=== PATIENT | female | born 1995 | race Two or more races ===

== ENCOUNTER 2025-01-31 11:00 | Inpatient (IN) | payer MEDICAID, OTHER ==
[~2025-01-31] VITALS: Ht 165.1 cm; Wt 86.3 kg
--- NOTE | 2025-01-31 11:25 | ED.PDOC ---
History of Present Illness HPI Comments 39 year old female with a History of Gastritis presents to the ED for the c/c of Epigastric ABD pain. Pt states that her pain started yesterday around 10pm after she ate a couple slices of "pizza". Pt states that her pain was about an 8/10 but has dulled down to a 5/10 as time progresses. Pt also notes of occasional Alcohol use during social gatherings. No other associated factors or symptoms at this point in time. Time Seen by MD: 11:22 Reviewed Notes: Nurses Notes, Medications, Allergies Allergies: Coded Allergies: NO KNOWN ALLERGIES (Unverified , 01/31/25) Information Source: Patient, Relative (Sibling) Mode of Arrival: Ambulatory Severity: Moderate Timing: Hours Duration: Since onset, Hours Prehospital treatment: None Past Medical History Past Medical History (Other): Gastritis Surgical History: Denies all surgeries INSOLE FILLER History: No Pertinent INSOLE FILLER History Family History Family History: No family hx of DM Social History Smoker: Non-Smoker Alcohol: Occasionally Drugs: Denies Drug Use Lives In: Home Constitutional: denies: chills, diaphoresis, fatigue, fever, malaise, sweats, weakness, others EENTM: denies: blurred vision, double vision, ear bleeding, ear discharge, ear drainage, ear pain, ear ringing, eye pain, eye redness, hearing loss, mouth pain, mouth swelling, nasal discharge, nose bleeding, nose congestion, nose pain, photophobia, tearing, throat pain, throat swelling, voice changes, others Respiratory: denies: cough, hemoptysis, orthopnea, SOB at rest, shortness of breath, SOB with excertion, stridor, wheezing, others Cardiovascular: denies: chest pain, dizzy spells, diaphoresis, Dyspnea on exertion, edema, irregular heart beat, left arm pain, lightheadedness, palpitations, PND, syncope, others Gastrointestinal: reports: abdominal pain; denies: abdomen distended, blood streaked bowels, constipated, diarrhea, dysphagia, difficulty swallowing, hematemesis, melena, nausea, poor appetite, poor fluid intake, rectal bleeding, rectal pain, vomiting, others Genitourinary: denies: abnormal vagina bleeding, burning, dyspareunia, dysuria, flank pain, frequency, hematuria, incontinence, pain, , vagina discharge, urgency, others Neurological: denies: dizziness, fainting, headache, left sided numbness, left sided weakness, numbness, paresthesia, pre-existing deficit, right sided numbness, right sided weakness, seizure, speech problems, tingling, tremors, we akness, others Musculoskeletal: denies: back pain, gout, joint pain, joint swelling, muscle pain, muscle stiffness, neck pain, others Integumetry: denies: bruises, change in color, change in hair/nails, dryness, laceration, lesions, lumps, rash, wounds, others Allergic/Immunocompromised: denies: Difficulty Healing, Frequent Infections, Hives, Itching, others Hematologic/Lymphatic: denies: anemia, blood clots, easy bleeding, easy bruising, swollen glands, others Endocrine: denies: excessive hunger, excessive sweating, excessive thirst, excessive urination, flushing, intolerance to cold, intolerance to heat, unexplained weight gain, unexplained weight loss, others Psychiatric: denies: anxiety, bipolar disorder, depression, hopeless, panic disorder, schizophrenia, sleepless, suicidal, others All Other Systems: Reviewed and Negative Physical Exam General Appearance: Moderate Distress, Obese HEENT: Normal ENT Inspection, Pharynx Normal, TMs Normal Neck: Full Range of Motion, Non-Tender, Normal, Normal Inspection Respiratory: Chest Non-Tender, Lungs Clear, No Accessory Muscle Use, No Respiratory Distress, Normal Breath Sounds Cardiovascular: No Edema, No JVD, No Murmur, No Gallop, Normal Peripheral Pulses, Regular Rate/Rhythm Breast Exam: Deferred Gastrointestinal: Epigastric, No Organomegaly, No Pulsatile Mass, Normal Bowel Sounds, Soft, Tenderness Genitalia: Deferred Pelvic: Deferred Rectal: Deferred Extremities: No calf tenderness, Normal capillary refill, Normal inspection, Normal range of motion, Non-tender, No pedal edema Musculoskeletal : Apperance: Normal Neurologic: Alert, skiver welt end II-XII nml as Tested, No Motor Deficits, Normal Affect, Normal Mood, No Sensory Deficits Cerebellar Function: Normal Reflexes: Normal Skin: Dry, Normal Color, Warm Lymphatic: No Adenopathy Was a procedure done? Was a procedure done?: No Differential Dx Considerations may include: Cholelithiasis, cholecystitis X-Ray, Labs, Meds, VS Vital Signs Date Time Temp Pulse Resp B/P (MAP) Pulse Ox O2 Delivery O2 Flow Rate FiO2 6/23/25 13:01 81 18 118/76 (90) 97 01/31/25 13:01 81 18 98 Room Air 01/31/25 12:14 Room Air* 0 21 01/31/25 11:26 98.0 93 16 116/67 (83) 98 98.0 Lab Test 01/31/25 11:59 01/31/25 11:53 Range/Units White Blood Count 10.1 4.4-10.8 10^3/uL Red Blood Count 4.59 4.0-5.20 10^6/uL Hemoglobin 12.8 12.2-16.2 g/dL Hematocrit 37.6 36.0-46.0 % Mean Corpuscular Volume 81.9 80.0-100.0 fL Mean Corpuscular Hemoglobin 27.9 L 28.0-32.0 pg Mean Corpuscular Hemoglobin Concent 34.1 32.0-36.0 g/dL Red Cell Distribution Width 14.2 11.8-14.3 % Platelet Count 289 140-450 10^3/uL Mean Platelet Volume 9.3 6.9-10.8 fL Neutrophils (%) (Auto) 90.4 H 37.0-80.0 % Lymphocytes (%) (Auto) 6.4 L 10.0-50.0 % Monocytes (%) (Auto) 2.5 0.0-12.0 % Eosinophils (%) (Auto) 0.1 0.0-7.0 % Basophils (%) (Auto) 0.6 0.0-2.0 % Neutrophils # (Auto) 9.1 H 1.6-8.6 10 ^3/uL Lymphocytes # (Auto) 0.6 0.4-5.4 10 ^3/uL Monocytes # (Auto) 0.3 0-1.3 10 ^3/uL Eosinophils # (Auto) 0 0-0.8 10 ^3/uL Basophils # (Auto) 0.1 0-0.2 10 ^3/uL Nucleated Red Blood Cells 0.0 % Sodium Level 142 136-145 mmol/L Potassium Level 4.0 3.5-5.1 mmol/L Chloride Level 106 98-107 mmol/L Carbon Dioxide Level 24 20-31 mmol/L Anion Gap 12 5-15 Blood Urea Nitrogen 8 L 9-23 mg/dL Creatinine 0.71 0.550-1.02 mg/dL Glomerular Filtration Rate Calc 119 >90 mL/min BUN/Creatinine Ratio 11.3 10.0-20.0 Serum Glucose 112 H 74-106 mg/dL Calcium Level 10.3 8.7-10.4 mg/dL Total Bilirubin 0.8 0.2-1.0 mg/dL Aspartate Amino Transferase (AST) 17 <34 U/L Alanine Aminotransferase (ALT) 11 7-40 U/L Alkaline Phosphatase 62 46-116 U/L Total Protein 8.2 5.7-8.2 g/dL Albumin 5.0 H 3.2-4.8 g/dL Lipase 27 12-53 U/L Urine Color Light-yellow Yellow Urine Clarity Clear Clear Urine pH 8.0 5.0-9.0 Urine Specific [place] 1.026 1.001-1.035 Urine Protein Trace H Negative Urine Ketones Negative Negative Urine Blood Trace H Negative /uL Urine Nitrite Negative Negative Urine Bilirubin Negative Negative Urine Urobilinogen Normal Negative mg/dL Urine Leukocyte Esterase Trace Negative /uL Urine RBC 21 0 - 4 /hpf Urine Microscopic WBC 3 0-5 /HPF Urine Squamous Epithelial Cells Few <5 /hpf Urine Bacteria None seen None Seen /hpf Urine Mucus Few None Seen Urine Glucose Normal Normal mg/dL IMPRESSION: Cholelithiasis without sonographic evidence of acute cholecystitis. Hepatic steatosis. IV Hep-Lock was established The patient is being given morphine 4 mg IV push for the pain The patient was given Zofran 4 mg IV push The patient was given Protonix 40 mg IV push The urine test is negative for infection The patient's CBC is within normal limits The chemistry panel is within normal limits The lipase is within normal limits Images Reviewed?: Images reviewed and evaluated by me Time of 1ST Reevaluation: 11:52 Reevaluation 1ST: Unchanged Patient Education/Counseling: Diagnosis, Treatment, Prognosis Family Education/Counseling: Diagnosis, Treatment, Prognosis SEPSIS Sepsis Screen Physician Orders Gallbladder (01/31/25 11:22) Vital Signs Date Time Temp Pulse Resp B/P (MAP) Pulse Ox O2 Delivery O2 Flow Rate FiO2 01/31/25 13:01 81 18 118/76 (90) 97 01/31/25 13:01 81 18 98 Room Air 01/31/25 12:14 Room Air* 0 21 01/31/25 11:26 98.0 93 16 116/67 (83) 98 98.0 Laboratory Tests Test 01/31/25 11:59 White Blood Count 10.1 10^3/uL (4.4-10.8) Departure 1 Departure Time of Disposition: 13:10 Impression: Primary Impression: Cholelithiasis Qualified Codes: K80.20 - Calculus of gallbladder without cholecystitis without obstruction Additional Impression: Intractable abdominal pain Disposition: ADMITTED INPATIENT Admit to: Med Surg Condition: Fair Critical Care Note Critical Care Time?: No Stability Stability form required: Yes Unstable for transfer: ED Physician Assesment (Clinical assesment) Heart Score Heart Score: Heart Score Response (Comments) Value History N/A 0 EKG N/A 0 Age N/A 0 Risk Factors N/A 0 Troponin N/A 0 Total 0 I personally scribed for RASHI PAYNE MD ([email or web address]) on 01/31/25 at 11:25. Electronically submitted by Pérez Fairchild ([email or web address]). I personally scribed for RASHI PAYNE MD ([email or web address]) on 01/31/25 at 12:45. Electronically submitted by Pérez Fairchild ([email or web address]). RASHI PAYNE MD Jan 31, 2025 11:25
[2025-01-31 11:53] LABS: Urine Bacteria None Seen /hpf (None Seen)
[2025-01-31 12:17] LABS: Basophils # (auto) 0.1 10 ^3/uL (0-0.2); Basophils % (auto) 0.6 % (0.0-2.0); Eosinophils # (auto) 0 10 ^3/uL (0-0.8); Eosinophils % (auto) 0.1 % (0.0-7.0); Hematocrit 37.6 % (36.0-46.0); Hemoglobin 12.8 g/dL (12.2-16.2); Lymphocytes # (auto) 0.6 10 ^3/uL (0.4-5.4); Lymphocytes % (auto) 6.4 % (10.0-50.0); Mean Corpuscular Hemoglobin 27.9 pg (28.0-32.0); Mean Corpuscular Hgb Conc. 34.1 g/dL (32.0-36.0); Mean Corpuscular Volume 81.9 fL (80.0-100.0); Monocytes # (auto) 0.3 10 ^3/uL (0-1.3); Monocytes % (auto) 2.5 % (0.0-12.0); Neutrophils # (auto) 9.1 10 ^3/uL (1.6-8.6); Neutrophils % (auto) 90.4 % (37.0-80.0); Platelet Count (auto) 289 10^3/uL (140-450); Red Blood Cells 4.59 10^6/uL (4.0-5.20); Red Cell Distribution Width 14.2 % (11.8-14.3); White Blood Cell 10.1 10^3/uL (4.4-10.8)
[2025-01-31 12:22] LABS: Urine Blood TRACE /uL (Negative); Urine Clarity Clear (Clear); Urine Color Light-Yellow (Yellow); Urine Mucus FEW (None Seen); Urine Protein, UAD TRACE (Negative); Urine Specific Gravity 1.026 (1.001-1.035); Urine Squamous Epithelial Cell FEW /hpf (<5); Urine Urobilinogen Normal (Negative); Urine WBC 3 /HPF (0-5)
[2025-01-31 12:23] LABS: Alanine Aminotransferase 11 U/L (7-40); Alkaline Phosphatase 62 U/L (46-116); Anion Gap 12 (5-15); Aspartate Aminotransferase 17 U/L (<34); BUN/Creatinine Ratio 11.3 (10.0-20.0); Bilirubin, Total 0.8 mg/dL (0.2-1.0); Calcium 10.3 mg/dL (8.7-10.4); Carbon Dioxide 24 mmol/L (20-31); Chloride 106 mmol/L (98-107); Sodium 142 mmol/L (136-145); Total Protein 8.2 g/dL (5.7-8.2)
[2025-01-31 12:24] LABS: Blood Urea Nitrogen 8 mg/dL (9-23); Glucose 112 mg/dL (74-106)
--- NOTE | 2025-01-31 12:41 | DVH ---
INDICATION: pain TECHNIQUE: Multiple real-time sonographic images were obtained of the right upper quadrant. COMPARISON: None FINDINGS: The liver demonstrates increased echotexture without focal mass lesions. The liver measures 14 cm. There is no intrahepatic or extrahepatic ductal dilatation. The common duct measures 4 mm. Multiple gallstones. The gallbladder wall measures 3 mm and is within normal limits. The right kidney measures 10.0 cm. The right kidney is normal in contour, size, and shape. The echog enicity is normal. There is no hydronephrosis. The pancreas is not well visualized due to overlying bowel gas. IMPRESSION: Cholelithiasis without sonographic evidence of acute cholecystitis. Hepatic steatosis.
[2025-01-31 12:59] LABS: Lipase 27 U/L (12-53)
[2025-01-31] MEDS: PANTOPRAZOLE 40 MG/10 ML VIAL INJ IV ONE (13:47)
[2025-01-31] MEDS: ONDANSETRON HCL 4 MG/2 ML VIAL IV ONE (13:47)
[2025-01-31] MEDS: MORPHINE SULFATE 4 MG/ML SYR/VIAL IV ONE (13:48)
[2025-01-31] MEDS ORDERED: ONDANSETRON HCL 4 MG/2 ML VIAL IV PRN (15:30)
[2025-01-31] MEDS ORDERED: DOCUSATE SOD 100 MG CAP PO PRN (15:30)
[2025-01-31] MEDS ORDERED: HYDROcodone-ACET 5/325MG TAB PO PRN (15:30)
[2025-01-31] MEDS ORDERED: MORPHINE SULFATE INJ 2 MG/ml SYRG IV PRN ×2 (15:30→16:15)
--- NOTE | 2025-01-31 16:14 | DVHHP2 ---
History of Present Illness Reason for Visit: Intractable abdominal pain History of Present Illness The patient is a 39-year-old female with past medical history of gastritis who presented to [facility] ED with complaint of epigastric abdominal pain. Patient reports that symptoms started after she ate a couple slice of pizza, rating pain 8/10 numeric scale, getting worse that prompted this visit. Patient was seen and evaluated in the ED, laboratory data shows WBC 10.1, platelets 289, sodium 142, potassium 4.0, BUN 8, creatinine 0.71, glucose 112, calcium 10.3, lipase 27, blood pressure 117/80, heart rate 82, temperature 98.0 F, O2 saturation 97% on room air. Gallbladder ultrasound revealing cholelithiasis without sonographic evidence of acute cholecystitis, hepatic steatosis. Patient was given morphine sulfate 4 mg IV x1, please see medication orders section in the computer. On my assessment, patient denied chest pain, no headache, no dizziness, no shortness of breath, no abdominal pain at this moment, no diarrhea, no nausea, no vomiting, no fever, no chills. Patient was admitted for further evaluation and medical management. Past Medical History Gastritis Past Surgical History Denies all surgeries Family History Reviewed, noncontributory to the management of this case. Past Social History The patient lives at home, denies smoking, alcohol or illicit drugs abuse. Review of Systems Constitutional: No: Fever, Chills, Sweats, Weakness, Malaise, Other Eyes: No: Pain, Vision change, Conjunctivae inflammation, Eyelid inflammation, Other, Redness ENT: No: Ear pain, Ear discharge, Nose pain, Nose discharge, Nose congestion, Mouth pain, Mouth swelling, Throat pain, Throat swelling, Other Respiratory: No: Cough, Dry, Shortness of breath, SOB with excertion, Wheezing, Hemoptysis, Pleuritic Pain, Sputum, Wheezing, Other Cardiovascular: No: Chest Pain, Palpitations, Orthopnea, Paroxysmal Noc. Dyspnea, Edema, Lt Headedness, Other Gastrointestinal: Abdominal Pain; No: Nausea, Vomiting, Diarrhea, Constipation, Melena, Hematochezia, Other Genitourinary: No Dysuria, No Frequency, No Incontinence, No Hematuria, No Retention, No Other Musculoskeletal: No: other, neck pain, shoulder pain, arm pain, back pain, hand pain, leg pain, foot pain Skin: No: Rash, Lesions, Jaundice, Bruising, Other Neurological: No: Weakness, Numbness, Incoordination, Change in speech, Confusion, Seizures, Other Allergies: Coded Allergies: NO KNOWN ALLERGIES (Unverified , 01/31/25) Medications Current Medications Medications Dose Ordered Sig/Nancy Route Start Time Stop Time Status Last Admin Dose Admin Pantoprazole Sodium 40 mg DAILY IV 02/01/25 10:00 Sodium Chloride 10 ml Q8HR IV 01/31/25 22:00 Acetaminophen/ Hydrocodone Bitart 1 tab Q4HP PRN PO 01/31/25 15:30 Ondansetron HCl 4 mg Q4HP PRN IV 01/31/25 15:30 Docusate Sodium 100 mg BIDPRN PRN PO 01/31/25 15:30 Acetaminophen 650 mg Q6HP PRN PO 01/31/25 15:30 Morphine Sulfate 2 mg Q4HPRN PRN IV 01/31/25 15:30 Exam Vital Signs Vital Signs Date Time Temp Pulse Resp B/P (MAP) Pulse Ox O2 Delivery O2 Flow Rate FiO2 01/31/25 13:48 82 18 117/80 01/31/25 13:01 97 01/31/25 13:01 Room Air 01/31/25 12:14 0 21 01/31/25 11:26 98.0 98.0 General Appearance: Alert, Oriented X3, Cooperative, No acute distress HEENT: Atraumatic, PERRLA, EOMI, Mucous membr. moist/pink Respiratory: Clear to auscultation, Normal air movement Cardiovascular: Regular rate, Normal S1, Normal S2, No murmurs Abdominal: Normal bowel sounds, Soft, No hepatospenomegaly, No masses, Other (Reports tenderness) Extremities: No clubbing, No cyanosis, No edema, Normal pulses, No tenderness/swelling Skin: No rashes, No breakdown, No significant lesion Neuro: Normal gait, Normal speech, Strength at 5/5 X4 ext, Normal tone, Sensation intact, Cranial nerves 3-12 NL, Reflexes 2+ Psych/Mental Status: Mental status NL, Mood NL Labs/Xrays Labs Test 01/31/25 11:59 01/31/25 11:53 Range/Units White Blood Count 10.1 4.4-10.8 10^3/uL Red Blood Count 4.59 4.0-5.20 10^6/uL Hemoglobin 12.8 12.2-16.2 g/dL Hematocrit 37.6 36.0-46.0 % Mean Corpuscular Volume 81.9 80.0-100.0 fL Mean Corpuscular Hemoglobin 27.9 L 28.0-32.0 pg Mean Corpuscular Hemoglobin Concent 34.1 32.0-36.0 g/dL Red Cell Distribution Width 14.2 11.8-14.3 % Platelet Count 289 140-450 10^3/uL Mean Platelet Volume 9.3 6.9-10.8 fL Neutrophils (%) (Auto) 90.4 H 37.0-80.0 % Lymphocytes (%) (Auto) 6.4 L 10.0-50.0 % Monocytes (%) (Auto) 2.5 0.0-12.0 % Eosinophils (%) (Auto) 0.1 0.0-7.0 % Basophils (%) (Auto) 0.6 0.0-2.0 % Neutrophils # (Auto) 9.1 H 1.6-8.6 10 ^3/uL Lymphocytes # (Auto) 0.6 0.4-5.4 10 ^3/uL Monocytes # (Auto) 0.3 0-1.3 10 ^3/uL Eosinophils # (Auto) 0 0-0.8 10 ^3/uL Basophils # (Auto) 0.1 0-0.2 10 ^3/uL Nucleated Red Blood Cells 0.0 % Sodium Level 142 136-145 mmol/L Potassium Level 4.0 3.5-5.1 mmol/L Chloride Level 106 98-107 mmol/L Carbon Dioxide Level 24 20-31 mmol/L Anion Gap 12 5-15 Blood Urea Nitrogen 8 L 9-23 mg/dL Creatinine 0.71 0.550-1.02 mg/dL Glomerular Filtration Rate Calc 119 >90 mL/min BUN/Creatinine Ratio 11.3 10.0-20.0 Serum Glucose 112 H 74-106 mg/dL Calcium Level 10.3 8.7-10.4 mg/dL Total Bilirubin 0.8 0.2-1.0 mg/dL Aspartate Amino Transferase (AST) 17 <34 U/L Alanine Aminotransferase (ALT) 11 7-40 U/L Alkaline Phosphatase 62 46-116 U/L Total Protein 8.2 5.7-8.2 g/dL Albumin 5.0 H 3.2-4.8 g/dL Lipase 27 12-53 U/L Urine Color Light-yellow Yellow Urine Clarity Clear Clear Urine pH 8.0 5.0-9.0 Urine Specific [place] 1.026 1.001-1.035 Urine Protein Trace H Negative Urine Ketones Negative Negative Urine Blood Trace H Negative /uL Urine Nitrite Negative Negative Urine Bilirubin Negative Negative Urine Urobilinogen Normal Negative mg/dL Urine Leukocyte Esterase Trace Negative /uL Urine RBC 21 0 - 4 /hpf Urine Microscopic WBC 3 0-5 /HPF Urine Squamous Epithelial Cells Few <5 /hpf Urine Bacteria None seen None Seen /hpf Urine Mucus Few None Seen Urine Glucose Normal Normal mg/dL PATIENT: CHONG AWAD ACCT: [id number] UNIT: [id number] : 1995 LOC: ER ROOM / BED: / AGE / SEX: 29 / F ADM STATUS: REG ER SERVICE 1122 ORDERING PHYSICIAN: RASHI PAYNE MD PROCEDURE(s): GBUS - GALLBLADDER REASON: pain ORDER NUMBER(s): [id number], ACCESSION NUMBER(s): [id number] INDICATION: pain TECHNIQUE: Multiple real-time sonographic images were obtained of the right upper quadrant. COMPARISON: None FINDINGS: The liver demonstrates increased echotexture without focal mass lesions. The liver measures 14 cm. There is no intrahepatic or extrahepatic ductal dilatation. The common duct measures 4 mm. Multiple gallstones. The gallbladder wall measures 3 mm and is within normal limits. The right kidney measures 10.0 cm. The right kidney is normal in contour, size, and shape. The echogenicity is normal. There is no hydronephrosis. The pancreas is not well visualized due to overlying bowel gas. IMPRESSION: Cholelithiasis without sonographic evidence of acute cholecystitis. Hepatic steatosis. Assessment/Plan Assessment/Plan Cholelithiasis Intractable abdominal pain Calculus of gallbladder without cholecystitis without obstruction Plan 1. Admit to med surge unit 2. Breathing treatment 3. Pain control management 4. Management of fluids and electrolytes 5. Consultation for hospitalist 6. Diagnostic tests bladder ultrasound 7. DVT prophylaxis on SCDs 8. Repeat labs CBC, CMP in a.m. 9. Continue with current medical management 10. Treatment plan discussed with patient and RN. Patient verbalized understanding. Plan discussed with: Patient, Other (RN) My Orders Orders - CHAPARRITA ZAMORA DNP Procedure Category Date Status Time Pantoprazole PHA 02/01/25 In Process (Protonix) 10:00 Allergies HAYLIE 01/31/25 In Process 15:30 Code Status CODE 01/31/25 Transmitted 15:30 Sodium Chloride Lock PHA 01/31/25 In Process (Saline Lock Ns) 22:00 Oxygen Per Hour RT 01/31/25 Transmitted 15:30 Hydrocodone-Acet PHA 01/31/25 In Process 5/325mg Tab (Elizabeth 15:30 Ondansetron Hcl PHA 01/31/25 In Process (Zofran) 15:30 Docusate Sodium PHA 01/31/25 In Process Capsule (Colace 15:30 Complete Blood Count LAB 02/01/25 Verified 04:00 Comprehensive LAB 02/01/25 Verified Metabolic Panel 04:00 Condition: Serious HAYLIE 01/31/25 In Process 15:30 Acetaminophen Tablet PHA 01/31/25 In Process (Tylenol Tablet) 15:30 Clear Liq Diet DIET 01/31/25 Transmitted Dinner Bedrest With Bathroom HAYLIE 01/31/25 In Process Privileg 15:30 Morphine Sulfate PHA 01/31/25 In Process Injection 15:30 Sequential HAYLIE 01/31/25 In Process Compression Device Problem List: (1) Cholelithiasis (2) Intractable abdominal pain (3) Calculus of gallbladder without cholecystitis without obstruction Date of Service: Jan 31, 2025 Billing Provider: CHAPARRITA ZAMORA DNP Common Visit Codes: 23375-[id number] INP/OBS CARE (MOD) CHAPARRITA ZAMORA DNP Jan 31, 2025 16:14
[2025-01-31] MEDS ORDERED: NITROGLYCERIN 0.4 MG SL TAB SL PRN (16:15)
[2025-01-31 17:21] VITALS: BP 101/64; PULSE 69; RESP 14; TEMP 98.3
[2025-01-31] MEDS: ACETAMINOPHEN 325 MG TAB PO PRN (20:55)
[2025-01-31 21:00] VITALS: BP 99/66; PULSE 71; RESP 16; TEMP 98.8; O2SAT 100
[2025-01-31] MEDS: SODIUM CHLOR 0.9% PF (SALINE LOCK) 10ML VIAL/SYR IV SCH (22:00)
[2025-02-01 04:32] LABS: Basophils # (auto) 0 10 ^3/uL (0-0.2); Basophils % (auto) 0.3 % (0.0-2.0); Eosinophils # (auto) 0 10 ^3/uL (0-0.8); Eosinophils % (auto) 0.6 % (0.0-7.0); Hematocrit 36.1 % (36.0-46.0); Lymphocytes # (auto) 1.8 10 ^3/uL (0.4-5.4); Lymphocytes % (auto) 27.7 % (10.0-50.0); Mean Corpuscular Hemoglobin 27.6 pg (28.0-32.0); Mean Corpuscular Hgb Conc. 33.3 g/dL (32.0-36.0); Mean Corpuscular Volume 82.8 fL (80.0-100.0); Monocytes # (auto) 0.5 10 ^3/uL (0-1.3); Neutrophils # (auto) 4.1 10 ^3/uL (1.6-8.6); Neutrophils % (auto) 63.4 % (37.0-80.0); Nucleated Red Blood Cells % 0.1 %; Platelet Count (auto) 253 10^3/uL (140-450); Red Blood Cells 4.37 10^6/uL (4.0-5.20); Red Cell Distribution Width 14.1 % (11.8-14.3); White Blood Cell 6.5 10^3/uL (4.4-10.8)
[2025-02-01 04:35] VITALS: BP 89/47; PULSE 56; RESP 16; TEMP 98.5; O2SAT 100
[2025-02-01 04:38] LABS: Albumin 4.4 g/dL (3.2-4.8); Alkaline Phosphatase 56 U/L (46-116); Anion Gap 10 (5-15); Aspartate Aminotransferase 12 U/L (<34); BUN/Creatinine Ratio 11.1 (10.0-20.0); Calcium 9.1 mg/dL (8.7-10.4); Carbon Dioxide 27 mmol/L (20-31); Chloride 102 mmol/L (98-107); Glucose 94 mg/dL (74-106); Potassium 3.5 mmol/L (3.5-5.1); Sodium 139 mmol/L (136-145); Total Protein 7.5 g/dL (5.7-8.2)
[2025-02-01 04:45] LABS: Alanine Aminotransferase < 9 U/L (7-40); Bilirubin, Total 1.2 mg/dL (0.2-1.0); Blood Urea Nitrogen 9 mg/dL (9-23)
[2025-02-01 08:32] VITALS: BP 89/61; PULSE 57; RESP 16; TEMP 98; O2SAT 97
[2025-02-01] MEDS: PANTOPRAZOLE 40 MG/10 ML VIAL INJ IV SCH (09:29)
[2025-02-01 12:32] VITALS: BP 100/62; PULSE 74; RESP 17; TEMP 98.3; O2SAT 98
--- NOTE | 2025-02-01 14:55 | DVHPN2 ---
Eyes: No Pain, No Vision change, No Conjunctivae inflammation, No Eyelid inflammation, No Other, No Redness ENT: No Ear pain, No Ear discharge, No Nose pain, No Nose discharge, No Nose congestion, No Mouth pain, No Mouth swelling, No Throat pain, No Throat swelling, No Other Cardiovascular: No Chest Pain, No Palpitations, No Orthopnea, No Paroxysmal Noc. Dyspnea, No Edema, No Lt Headedness, No Other Respiratory: No Cough, No Dry, No Shortness of breath, No SOB with excertion, No Wheezing, No Hemoptysis, No Pleuritic Pain, No Sputum, No Other Gastrointestinal: No Nausea, No Vomiting; Abdominal Pain; No Diarrhea, No Constipation, No Melena, No Hematochezia, No Other Genitourinary: No Dysuria, No Frequency, No Incontinence, No Hematuria, No Retention, No Other Musculoskeletal: No other, No neck pain, No shoulder pain, No arm pain, No back pain, No hand pain, No leg pain, No foot pain Skin: No Rash, No Lesions, No Jaundice, No Bruising, No Other Objective Vitals Vital Signs Date Time Temp Pulse Resp B/P (MAP) Pulse Ox O2 Delivery O2 Flow Rate FiO2 02/01/25 12:32 98.3 74 17 100/62 (75) 98 98.3 01/31/25 13:01 Room Air 01/31/25 12:14 0 21 Intake/Output Intake and Output 02/01/25 07:00 Intake Total 0 ml Balance 0 ml Intake Oral 0 ml Medications Current Medications Medications Dose Ordered Sig/Nancy Route Start Time Stop Time Status Last Admin Dose Admin Pantoprazole Sodium 40 mg DAILY IV 02/01/25 10:00 02/01/25 09:29 40 MG Sodium Chloride 10 ml Q8HR IV 01/31/25 22:00 02/01/25 13:56 10 ML Acetaminophen/ Hydrocodone Bitart 1 tab Q4HP PRN PO 01/31/25 15:30 Ondansetron HCl 4 mg Q4HP PRN IV 01/31/25 15:30 Docusate Sodium 100 mg BIDPRN PRN PO 01/31/25 15:30 Acetaminophen 650 mg Q6HP PRN PO 01/31/25 15:30 01/31/25 20:55 650 MG Morphine Sulfate 2 mg Q4HPRN PRN IV 01/31/25 15:30 Nitroglycerin 0.4 mg Q5MINP PRN SL 01/31/25 16:15 Morphine Sulfate 2 mg Q30M PRN IV 01/31/25 16:15 Laboratory Results Laboratory Tests 02/01/25 03:33 Chemistry Test 02/01/25 03:33 Albumin 4.4 g/dL (3.2-4.8) Calcium Level 9.1 mg/dL (8.7-10.4) Total Protein 7.5 g/dL (5.7-8.2) LFT Test 02/01/25 03:33 Alanine Aminotransferase (ALT) < 9 U/L (7-40) Alkaline Phosphatase 56 U/L (46-116) Aspartate Amino Transferase (AST) 12 U/L (<34) Total Bilirubin 1.2 mg/dL (0.2-1.0) H Urinalysis Test 01/31/25 11:53 Urine Color Light-yellow (Yellow) Urine Clarity Clear (Clear) Urine pH 8.0 (5.0-9.0) Urine Specific [place] 1.026 (1.001-1.035) Urine Protein Trace (Negative) H Urine Ketones Negative (Negative) Urine Blood Trace /uL (Negative) H Urine Nitrite Negative (Negative) Urine Bilirubin Negative (Negative) Urine Urobilinogen Normal mg/dL (Negative) Urine Leukocyte Esterase Trace /uL (Negative) Urine RBC 21 /hpf (0 - 4) Urine Microscopic WBC 3 /HPF (0-5) Urine Squamous Epithelial Cells Few /hpf (<5) Urine Bacteria None seen /hpf (None Seen) Urine Mucus Few (None Seen) Urine Glucose Normal mg/dL (Normal) NATALIYA WOOD DO Feb 01, 2025 14:55
[2025-02-01 16:46] VITALS: BP 99/60; PULSE 72; RESP 16; TEMP 98.1; O2SAT 98
--- NOTE | 2025-02-01 18:37 | DVHINCON2 ---
Consultation - Surgical Date Seen: Feb 01, 2025 Referring Physician Referring Physician er Reason for Consultation abd pain History of Present Illness History of Present Illness The patient is a 39-year-old female with past medical history of gastritis who presented to [facility] ED with complaint of epigastric abdominal pain. Patient reports that symptoms started after she ate a couple slice of pizza, rating pain 8/10 numeric scale, getting worse that prompted this visit. Patient was seen and evaluated in the ED, laboratory data shows WBC 10.1, platelets 289, sodium 142, potassium 4.0, BUN 8, creatinine 0.71, glucose 112, calcium 10.3, lipase 27, blood pressure 117/80, heart rate 82, temperature 98.0 F, O2 saturation 97% on room air. Gallbladder ultrasound revealing cholelithiasis without sonographic evidence of acute cholecystitis, hepatic steatosis. Patient was given morphine sulfate 4 mg IV x1, please see medication orders section in the computer. On my assessment, patient denied chest pain, no headache, no dizziness, no shortness of breath, no abdominal pain at this moment, no diarrhea, no nausea, no vomiting, no fever, no chills. Patient was admitted for further evaluation and medical management. Patient currently feels better no abdominal pain. He is looking to eat. Past Medical/Surgical History Past Medical/Surgical History gastritis Family and Social History Family and Social History Nonsmoker nondrinker Allergies and medications Allergies: Coded Allergies: NO KNOWN ALLERGIES (Unverified , 01/31/25) Home Meds No Active Prescriptions or Reported Meds Review of systems Review of Systems: HEENT:Normal, CVS:Normal, RESPIRATORY:Normal, GI:Normal, :Normal, MSK:Normal, NEURO:Normal Examination Vital signs Vital Signs Date Time Temp Pulse Resp B/P (MAP) Pulse Ox O2 Delivery O2 Flow Rate FiO2 02/01/25 16:46 98.1 72 16 99/60 (73) 98 98.1 01/31/25 13:01 Room Air 01/31/25 12:14 0 21 Medications Current Medications Medications (Trade) Dose Ordered Sig/Nancy Route PRN Reason Start Time Stop Time Status Last Admin Pantoprazole Sodium (Protonix) 40 mg DAILY IV 02/01/25 10:00 02/01/25 09:29 Sodium Chloride (Saline Lock Ns) 10 ml Q8HR IV 01/31/25 22:00 02/01/25 13:56 Laboratory Labs Test 02/01/25 03:33 01/31/25 11:59 01/31/25 11:53 Range/Units White Blood Count 6.5 # 4.4-10.8 10^3/uL Red Blood Count 4.37 4.0-5.20 10^6/uL Hemoglobin 12.0 L 12.2-16.2 g/dL Hematocrit 36.1 36.0-46.0 % Mean Corpuscular Volume 82.8 80.0-100.0 fL Mean Corpuscular Hemoglobin 27.6 L 28.0-32.0 pg Mean Corpuscular Hemoglobin Concent 33.3 32.0-36.0 g/dL Red Cell Distribution Width 14.1 11.8-14.3 % Platelet Count 253 140-450 10^3/uL Mean Platelet Volume 9.2 6.9-10.8 fL Neutrophils (%) (Auto) 63.4 37.0-80.0 % Lymphocytes (%) (Auto) 27.7 10.0-50.0 % Monocytes (%) (Auto) 8.0 0.0-12.0 % Eosinophils (%) (Auto) 0.6 0.0-7.0 % Basophils (%) (Auto) 0.3 0.0-2.0 % Neutrophils # (Auto) 4.1 1.6-8.6 10 ^3/uL Lymphocytes # (Auto) 1.8 0.4-5.4 10 ^3/uL Monocytes # (Auto) 0.5 0-1.3 10 ^3/uL Eosinophils # (Auto) 0 0-0.8 10 ^3/uL Basophils # (Auto) 0 0-0.2 10 ^3/uL Nucleated Red Blood Cells 0.1 % Sodium Level 139 136-145 mmol/L Potassium Level 3.5 3.5-5.1 mmol/L Chloride Level 102 98-107 mmol/L Carbon Dioxide Level 27 20-31 mmol/L Anion Gap 10 5-15 Blood Urea Nitrogen 9 9-23 mg/dL Creatinine 0.81 0.550-1.02 mg/dL Glomerular Filtration Rate Calc 101 >90 mL/min BUN/Creatinine Ratio 11.1 10.0-20.0 Serum Glucose 94 74-106 mg/dL Calcium Level 9.1 8.7-10.4 mg/dL Total Bilirubin 1.2 H 0.2-1.0 mg/dL Aspartate Amino Transferase (AST) 12 <34 U/L Alanine Aminotransferase (ALT) < 9 7-40 U/L Alkaline Phosphatase 56 46-116 U/L Total Protein 7.5 5.7-8.2 g/dL Albumin 4.4 3.2-4.8 g/dL Lipase 27 12-53 U/L Urine Color Light-yellow Yellow Urine Clarity Clear Clear Urine pH 8.0 5.0-9.0 Urine Specific [place] 1.026 1.001-1.035 Urine Protein Trace H Negative Urine Ketones Negative Negative Urine Blood Trace H Negative /uL Urine Nitrite Negative Negative Urine Bilirubin Negative Negative Urine Urobilinogen Normal Negative mg/dL Urine Leukocyte Esterase Trace Negative /uL Urine RBC 21 0 - 4 /hpf Urine Microscopic WBC 3 0-5 /HPF Urine Squamous Epithelial Cells Few <5 /hpf Urine Bacteria None seen None Seen /hpf Urine Mucus Few None Seen Urine Glucose Normal Normal mg/dL Examination: GENERAL:Normal, HEENT:Normal, NECK:Normal, LUNGS:Normal, CVS:Normal, ABDOMEN:Normal, MSK:Normal, SKIN:Normal, NEURO:Normal, :Normal Problem List/Assessment/Plan Problems: (1) Cholelithiasis Assessment and Plan Abdominal pain resolved. Advance diet if tolerates diet without pain discharged in a.m. Plan discussed with Plan discussed with: Patient Visit Coding Surgery Date of Service if different f: Feb 01, 2025 Billing Provider: TIFFANIE GUZMAN Jr., MD Surgery Visit Codes: 02954 - INP CONSULT <80 MIN TIFFANIE GUZMAN Jr., MD Feb 01, 2025 18:37
[2025-02-01 20:00] VITALS: PULSE 77; RESP 16; O2SAT 96
[2025-02-01 21:00] VITALS: BP 103/65; PULSE 72; RESP 16; RESP 69; TEMP 98.3; O2SAT 96
[2025-02-02] VITALS (7 sets, daily range): BP systolic 94–109; BP diastolic 55–74; PULSE 61–82; RESP 16–20; TEMP 97.2–98.6; O2SAT 95–99
== END 2025-02-02 17:50 | disposition home or self-care (01) ==
LOC: ER 11:00 → OVERFLOW 16:12 → EAST 02-01 16:07
PROVIDERS: ADMIT Internal Medicine; ATTEND Internal Medicine
DX: K80.20 Calculus of gallbladder without cholecystitis without obstruction (principal); K76.0 Fatty (change of) liver, not elsewhere classified
CPT/HCPCS: 36415; 76705; 80053; 81001; 83690; 85025; 96374; 96375; G0378; J2405; J2470

== ENCOUNTER 2025-02-23 16:27 | Emergency (ER) | payer MEDICAID ==
[~2025-02-23] VITALS: Ht 165.1 cm; Wt 90.4 kg
[2025-02-23 17:32] LABS: Urine Protein, UAD Negative (Negative)
[2025-02-23 18:04] LABS: Hematocrit 38.9 % (36.0-46.0); Hemoglobin 12.8 g/dL (12.2-16.2); Mean Corpuscular Hemoglobin 27.8 pg (28.0-32.0); Mean Corpuscular Volume 84.5 fL (80.0-100.0); Nucleated Red Blood Cells % 0.0 %
[2025-02-23 18:17] LABS: Alanine Aminotransferase 23 U/L (7-40); Albumin 5.2 g/dL (3.2-4.8); Alkaline Phosphatase 86 U/L (46-116); Anion Gap 12 (5-15); BUN/Creatinine Ratio 9.5 (10.0-20.0); Bilirubin, Total 0.7 mg/dL (0.2-1.0); Blood Urea Nitrogen 8 mg/dL (9-23); Calcium 10.7 mg/dL (8.7-10.4); Carbon Dioxide 22 mmol/L (20-31); Chloride 108 mmol/L (98-107); Glucose 111 mg/dL (74-106); Potassium 3.5 mmol/L (3.5-5.1); Sodium 142 mmol/L (136-145); Total Protein 8.6 g/dL (5.7-8.2)
[2025-02-23 18:24] VITALS: PULSE 104; RESP 18; TEMP 99.4; O2SAT 95
--- NOTE | 2025-02-23 18:41 | DVH ---
CHEST RADIOGRAPH REASON FOR EXAM: chest pain radiating to R shoulder and neck COMPARISON: None TECHNIQUE: One view of the chest is provided FINDINGS: The cardiomediastinal silhouette is within normal limits for technique. There is no focal a irspace disease. There is no significant pleural effusion. No acute bony abnormality is identified. IMPRESSION: No radiographic evidence of acute cardiopulmonary process.
[2025-02-23] MEDS: PANTOPRAZOLE 40 MG/10 ML VIAL INJ IV ONE (18:45)
[2025-02-23] MEDS: MORPHINE SULFATE 4 MG/ML SYR/VIAL IV ONE (18:46)
--- NOTE | 2025-02-23 18:46 | DVH ---
COMPUTERIZED TOMOGRAPHY ABDOMEN AND PELVIS WITHOUT CONTRAST REASON FOR EXAM: upper abd pain radiating to the R shoulder and neck COMPARISON: None TECHNIQUE: Spiral scans were acquired from the diaphragm to the symphysis pubis without intravenous c ontrast administration. 2-D coronal and sagittal reformatted images were provided. Radiation optimiza tion: All CT scans at this facility use at least one of these dose optimization techniques: Automated exposure control mA and/or kV adjustment per patient size (includes targeted exams where dose is mat ched to clinical indication) or iterative reconstruction. RADIATION DOSE: CTDI: 22 mGy DLP: 1201 mGy-cm FINDINGS: The visualized lung bases are clear. There is no pleural effusion. There is no pericardial effusion. The spleen is not enlarged. The liver is normal in size and contour. Evaluation of the abdominal orga ns is suboptimal in the absence of intravenous contrast. Unenhanced appearance of the pancreas is wit hin normal limits. There are several small calcified gallstones within the gallbladder which is not d istended. There is no pericholecystic edema identified. The adrenal glands are normal. The kidneys are similar in size. There is no hydronephrosis of either kidney. No renal, ureteral, or bladder calc ulus is identified. The urinary bladder is decompressed and is not well evaluated. The uterus is wit hin normal limits. The ovaries appear heterogeneous and borderline enlarged. Both ovaries contain sc attered calcifications. There is trace free fluid in the dependent pelvis, likely physiologic. There is no significant colonic stool burden. The appendix is normal. There is no pathologic distention of the small bowel to suggest obstruction. No pathologic lymphadenopathy is identified by size criteria . There is no abdominal aortic aneurysm. No acute osseous abnormality is identified. IMPRESSION: Cholelithiasis without secondary signs of acute cholecystitis. Correlate clinically. Consider right upper quadrant ultrasound if clinically indicated. Both ovaries appear heterogeneous and borderline enlarged and contains scattered calcifications. [place] elate clinically. Consider pelvic ultrasound if clinically indicated. Normal appendix
[2025-02-23] MEDS: ONDANSETRON HCL 4 MG/2 ML VIAL IV ONE (18:47)
--- NOTE | 2025-02-23 18:48 | ED.PDOC ---
GI ASSESSMENT HPI Comments 29y F who presents to the ED for chief complaint of abdominal pain. Pt states she has been having upper abdominal pain and lower chest pain since 1530 PM today. Pt states the pain is intermittent, burning in nature, with pain radiating to the R shoulder and R neck. Pt has associated nausea and vomiting but otherwise denies any other symptoms. Pt states she was at 3x weeks prior for similar symptoms and told she has gallstones. Pt has noted elevated heart rate of 104 but otherwise stable vitals including BP of 126/77, 98% 02 sat, RR 16 and temp of 97.8 F. Pt otherwise denies any other symptoms at this time. Chief Complaint: Abdominal Pain Time Seen by MD: 18:30 Primary Care Provider: NONE Reviewed Notes: Medications, Allergies Allergies: Coded Allergies: NO KNOWN ALLERGIES (Unverified , 01/31/25) Home Meds Active Scripts Cephalexin Monohydrate (Cephalexin) 500 Mg Cap, 1 CAP PO QID for 10 Days, #40 CAP Prov:MARCEL TOLBERT MD 02/23/25 Ondansetron Odt 4MG Tab (ZOFRAN PO) 4 Mg Tb, 4 MG PO TID PRN, #30 TAB Prn nausea/vomiting ODT TAB-DISSOLVE IN MOUTH, THEN SWALLOW Prov:MARCEL TOLBERT MD 02/23/25 Omeprazole Magnesium (Omeprazole) 20 Mg Tab, 20 MG PO DAILY@BREAKFAST, #30 TAB Prov:MARCEL TOLBERT MD 02/23/25 Hydrocodone-Acetaminophen (Hydrocodone Bitartrate/AC 5-325 mg) 1 Tab Tab, 1 TAB PO Q6HP PRN, #20 TAB Prn pain Prov:MARCEL TOLBERT MD 02/23/25 Dicyclomine Hcl (BENTYL CAPSULE) 10 Mg Cp, 2 CAP PO TID PRN, #30 CAP 11 Refills Prn abdominal pain Prov:MARCEL TOLBERT MD 02/23/25 Information Source: Patient Mode of Arrival: Ambulatory Past Medical History Past Medical History (Other): gallstones Surgical History (Other): Pilonidal cyst removal [employer] History: No Pertinent [employer] History Family History Family History: No family hx of DM Social History Smoker: Non-Smoker Alcohol: Occasionally Drugs: Denies Drug Use Lives In: Home Constitutional: denies: chills, diaphoresis, fatigue, fever, malaise, sweats, weakness, others EENTM: denies: blurred vision, double vision, ear bleeding, ear discharge, ear drainage, ear pain, ear ringing, eye pain, eye redness, hearing loss, mouth pain, mouth swelling, nasal discharge, nose bleeding, nose congestion, nose pain, photophobia, tearing, throat pain, throat swelling, voice changes, others Respiratory: denies: cough, hemoptysis, orthopnea, SOB at rest, shortness of breath, SOB with excertion, stridor, wheezing, others Cardiovascular: denies: chest pain, dizzy spells, diaphoresis, Dyspnea on exertion, edema, irregular heart beat, left arm pain, lightheadedness, palpitations, PND, syncope, others Gastrointestinal: reports: nausea, vomiting; denies: abdomen distended, abdominal pain, blood streaked bowels, constipated, diarrhea, dysphagia, difficulty swallowing, hematemesis, melena, poor appetite, poor fluid intake, rectal bleeding, rectal pain, others Genitourinary: denies: abnormal vagina bleeding, burning, dyspareunia, dysuria, flank pain, frequency, hematuria, incontinence, pain, , vagina discharge, urgency, others Neurological: denies: dizziness, fainting, headache, left sided numbness, left sided weakness, numbness, paresthesia, pre-existing deficit, right sided numbness, right sided weakness, seizure, speech problems, tingling, tremors, weakness, others Musculoskeletal: denies: back pain, gout, joint pain, joint swelling, muscle pain, muscle stiffness, neck pain, others Integumetry: denies: bruises, change in color, change in hair/nails, dryness, laceration, lesions, lumps, rash, wounds, others Allergic/Immunocompromised: denies: Difficulty Healing, Frequent Infections, Hives, Itching, others Hematologic/Lymphatic: denies: anemia, blood clots, easy bleeding, easy bruising, swollen glands, others Endocrine: denies: excessive hunger, excessive sweating, excessive thirst, excessive urination, flushing, intolerance to cold, intolerance to heat, unexplained weight gain, unexplained weight loss, others Psychiatric: denies: anxiety, bipolar disorder, depression, hopeless, panic disorder, schizophrenia, sleepless, suicidal, others All Other Systems: Reviewed and Negative Physical Exam General Appearance: No Apparent Distress, Obese HEENT: Other (Pupils and face symmetric. Moist mucous membranes.) Neck: Full Range of Motion, Normal Inspection Respiratory: Lungs Clear, No Accessory Muscle Use, No Respiratory Distress, Normal Breath Sounds Cardiovascular: No Edema, No JVD, Regular Rate/Rhythm Breast Exam: Deferred Gastrointestinal: Epigastric, LUQ, RUQ, Soft, Tenderness Genitalia: Deferred Pelvic: Deferred Rectal: Deferred Extremities: Normal inspection, Normal range of motion, Non-tender, No pedal edema Neurologic: Alert (Oriented x4), Normal Affect, Normal Mood, Other (Ambulatory) Cerebellar Function: NOT DONE Reflexes: NOT DONE Skin: Dry, Normal Color, Warm Lymphatic: NOT DONE Was a procedure done? Was a procedure done?: No GI differential Dx Differential Diagnosis: Cholangitis, Cholecystitis, Constipation, Gastritis/PUD, Gastroenteritis, Pancreatitis, UTI, Dehydration, Electrolyte Imbalance, Food Poisoning, Bacterial, Viral, Stress Ulcer, Kidney Stone X-Ray, Labs, Meds, VS Vital Signs Date Time Temp Pulse Resp B/P (MAP) Pulse Ox O2 Delivery O2 Flow Rate FiO2 02/23/25 19:16 83 17 123/77 02/23/25 18:46 104 18 120/77 02/23/25 18:24 104 18 95 Room Air* 0 21 02/23/25 18:24 99.4 104 18 120/77 (91) 95 99.4 02/23/25 17:18 97.8 104 16 126/77 (93) 98 97.8 Lab Test 02/23/25 18:43 02/23/25 17:28 02/23/25 17:00 Range/Units Troponin I High Sensitivity < 3 L < 3 L </=34 ng/L White Blood Count 10.0 4.4-10.8 10^3/uL Red Blood Count 4.61 4.0-5.20 10^6/uL Hemoglobin 12.8 12.2-16.2 g/dL Hematocrit 38.9 36.0-46.0 % Mean Corpuscular Volume 84.5 80.0-100.0 fL Mean Corpuscular Hemoglobin 27.8 L 28.0-32.0 pg Mean Corpuscular Hemoglobin Concent 32.9 32.0-36.0 g/dL Red Cell Distribution Width 14.3 11.8-14.3 % Platelet Count 278 140-450 10^3/uL Mean Platelet Volume 9.7 6.9-10.8 fL Neutrophils (%) (Auto) 81.0 H 37.0-80.0 % Lymphocytes (%) (Auto) 13.2 10.0-50.0 % Monocytes (%) (Auto) 4.9 0.0-12.0 % Eosinophils (%) (Auto) 0.7 0.0-7.0 % Basophils (%) (Auto) 0.2 0.0-2.0 % Neutrophils # (Auto) 8.1 1.6-8.6 10 ^3/uL Lymphocytes # (Auto) 1.3 0.4-5.4 10 ^3/uL Monocytes # (Auto) 0.5 0-1.3 10 ^3/uL Eosinophils # (Auto) 0.1 0-0.8 10 ^3/uL Basophils # (Auto) 0 0-0.2 10 ^3/uL Nucleated Red Blood Cells 0.0 % Sodium Level 142 136-145 mmol/L Potassium Level 3.5 3.5-5.1 mmol/L Chloride Level 108 H 98-107 mmol/L Carbon Dioxide Level 22 20-31 mmol/L Anion Gap 12 5-15 Blood Urea Nitrogen 8 L 9-23 mg/dL Creatinine 0.84 0.550-1.02 mg/dL Glomerular Filtration Rate Calc 97 >90 mL/min BUN/Creatinine Ratio 9.5 L 10.0-20.0 Serum Glucose 111 H 74-106 mg/dL Calcium Level 10.7 H 8.7-10.4 mg/dL Total Bilirubin 0.7 0.2-1.0 mg/dL Aspartate Amino Transferase (AST) 52 H 13-40 U/L Alanine Aminotransferase (ALT) 23 7-40 U/L Alkaline Phosphatase 86 46-116 U/L B-Type Natriuretic Peptide 10.09 0-100 pg/mL Total Protein 8.6 H 5.7-8.2 g/dL Albumin 5.2 H 3.2-4.8 g/dL Lipase 34 12-53 U/L Urine Color Yellow Yellow Urine Clarity Turbid H Clear Urine pH 5.0 5.0-9.0 Urine Specific [place] 1.029 1.001-1.035 Urine Protein Negative Negative Urine Ketones Trace Negative Urine Blood 2+ H Negative /uL Urine Nitrite Negative Negative Urine Bilirubin Negative Negative Urine Urobilinogen 2 H Negative mg/dL Urine Leukocyte Esterase 3+ Negative /uL Urine RBC 11 0 - 4 /hpf Urine Microscopic WBC 34 H 0-5 /HPF Urine Squamous Epithelial Cells Few <5 /hpf Urine Bacteria Few H None Seen /hpf Urine Mucus Few None Seen Urine Glucose Normal Normal mg/dL Urine Test Negative Negative Current Medications Medications (Trade) Dose Ordered Sig/Nancy Route Start Time Stop Time Status Last Admin Morphine Sulfate 4 mg ONCE ONCE IV 02/23/25 18:00 02/23/25 18:01 DC 02/23/25 18:46 Ondansetron HCl (Zofran) 4 mg ONCE ONCE IV 02/23/25 18:00 02/23/25 18:01 DC 02/23/25 18:47 Sodium Chloride 2,000 ml @ 1,000 mls/hr Q2H ONCE IV 02/23/25 18:00 02/23/25 19:59 DC 02/23/25 19:00 Pantoprazole Sodium (Protonix) 40 mg ONCE ONCE IV 02/23/25 18:00 02/23/25 18:01 DC 02/23/25 18:45 Ceftriaxone Sodium 50 ml @ 100 mls/hr ONCE ONCE IV 02/23/25 20:30 02/23/25 20:59 DC 02/23/25 20:47 Ketorolac Tromethamine (Toradol Injection) 30 mg ONCE ONCE IV 02/23/25 21:30 02/23/25 21:31 DC 02/23/25 21:26 [place] [address] Ph: [phone] DIAGNOSTIC IMAGING Diagnostic Imaging Report : [id number] Signed PATIENT: CHONG AWAD ACCT: [id number] UNIT: [id number] : 1995 LOC: ER ROOM / BED: / AGE / SEX: 29 / F ADM STATUS: REG ER SERVICE [id number] ORDERING PHYSICIAN: MARCEL TOLBERT MD PROCEDURE(s): CXR1 - CHEST XRAY 1 VIEW REASON: chest pain radiating to R shoulder and neck ORDER NUMBER(s): [id number], ACCESSION NUMBER(s): [id number] CHEST RADIOGRAPH REASON FOR EXAM: chest pain radiating to R shoulder and neck COMPARISON: None TECHNIQUE: One view of the chest is provided FINDINGS: The cardiomediastinal silhouette is within normal limits for technique. There is no focal airspace disease. There is no significant pleural effusion. No acute bony abnormality is identified. IMPRESSION: No radiographic evidence of acute cardiopulmonary process. ATED BY: XANDER NUNEZ MD DICTATED DATE/TIME: 02/23/251837 SIGNED BY: XANDER NUNEZ MD SIGNED DATE/TIME: 02/23/251837 CC: [place] [address] Ph: [phone] DIAGNOSTIC IMAGING Diagnostic Imaging Report : [id number] Signed PATIENT: CHONG AWAD ACCT: [id number] UNIT: [id number] : 1995 LOC: ER ROOM / BED: / AGE / SEX: 29 / F ADM STATUS: REG ER SERVICE [id number] ORDERING PHYSICIAN: MARCEL TOLBERT MD PROCEDURE(s): ABPL - CT AB PEL WO CON-NO ORAL OR IV REASON: upper abd pain radiating to the R shoulder and neck ORDER NUMBER(s): [id number], ACCESSION NUMBER(s): [id number] COMPUTERIZED TOMOGRAPHY ABDOMEN AND PELVIS WITHOUT CONTRAST REASON FOR EXAM: upper abd pain radiating to the R shoulder and neck COMPARISON: None TECHNIQUE: Spiral scans were acquired from the diaphragm to the symphysis pubis without intravenous contrast administration. 2-D coronal and sagittal reformatted images were provided. Radiation optimization: All CT scans at this facility use at least one of these dose optimization techniques: Automated exposure control mA and/or kV adjustment per patient size (includes targeted exams where dose is matched to clinical indication) or iterative reconstruction. RADIATION DOSE: CTDI: 22 mGy DLP: 1201 mGy-cm FINDINGS: The visualized lung bases are clear. There is no pleural effusion. There is no pericardial effusion. The spleen is not enlarged. The liver is normal in size and contour. Evaluation of the abdominal organs is suboptimal in the absence of intravenous contrast. Unenhanced appearance of the pancreas is within normal limits. There are several small calcified gallstones within the gallbladder which is not distended. There is no pericholecystic edema identified. The adrenal glands are normal. The kidneys are similar in size. There is no hydronephrosis of either kidney. No renal, ureteral, or bladder calculus is identified. The urinary bladder is decompressed and is not well evaluated. The uterus is within normal limits. The ovaries appear heterogeneous and borderline enlarged. Both ovaries contain scat tered calcifications. There is trace free fluid in the dependent pelvis, likely physiologic. There is no significant colonic stool burden. The appendix is normal. There is no pathologic distention of the small bowel to suggest obstruction. No pathologic lymphadenopathy is identified by size criteria. There is no abdominal aortic aneurysm. No acute osseous abnormality is identifie d. IMPRESSION: Cholelithiasis without secondary signs of acute cholecystitis. Correlate clinically. Consider right upper quadrant ultrasound if clinically indicated. Both ovaries appear heterogeneous and borderline enlarged and contains scattered calcifications. Correlate clinically. Consider pelvic ultrasound if clinically indicated. Normal appendix ATED BY: XANDER NUNEZ MD DICTATED DATE/TIME: 02/23/251843 SIGNED BY: XANDER NUNEZ MD SIGNED DATE/TIME: 02/23/251843 CC: X-Ray, Labs, Meds, VS Comment 29-year-old female with a history of gallstones complaining of upper abdominal pain radiating to the lower chest and right shoulder and neck Vitals remarkable for heart rate 104 Exam remarkable for epigastric and right greater than left upper quadrant tenderness to palpation Rhythm strip independently interpreted by me: Sinus tach, rate 104, no ectopy. Chest x-ray remarkable CT abdomen and pelvis IMPRESSION: Cholelithiasis without secondary signs of acute cholecystitis. Correlate clinically. Consider right upper quadrant ultrasound if clinically indicated. Both ovaries appear heterogeneous and borderline enlarged and contains scattered calcifications. Correlate clinically. Consider pelvic ultrasound if clinically indicated. Normal appendix CBC, CMP, lipase, BNP and 2 serial troponins unremarkable. UA abnormal consistent with UTI. Patient treated with the following in the ED: 2 L 0.9 normal saline IV bolus, morphine 4 mg IV, Zofran 4 mg IV, Protonix 40 mg IV, Rocephin 1 g IV On re-evaluation, patient states pain has improved. Vitals were stable. She is tolerating p.o. fluids. Hospitalization was considered, however patient had rapid improvement of symptoms with treatment in the ED, and I no longer feel hospitalization is necessary. Patient now appears stable for discharge with close outpatient follow-up with her primary physician. Rx [place], omeprazole, Bentyl, Zofran, Keflex Time of 1ST Reevaluation: 20:26 Reevaluation 1ST: Improved Patient Education/Counseling: Diagnosis, Treatment Family Education/Counseling: No Family Present SEPSIS Sepsis Screen Date sepsis recognized/suspect: Feb 23, 2025 Time Sepsis recognized/suspect: 1823 Recent Procedure: No On Antibiotic Therapy: No Respiratory Rate >20: No Heart Rate >90: No Temp<36 C (96.8 F) or >38.3 C: No SBP <90 or MAP <65 mmHG: No New Acute Mental Status Change: No Is the patient on CPAP, BIPAP,: No SEPSIS EXCLUSION NOTE: Sepsis Exclusion Note: Patient presents with SIRS criteria, but the SIRS response is attributed to [pain due to biliary colic ]. Sepsis bundle is not initiated at this time, due to this reason. Further management will focus on the treatment of the above condition (s). Physician Orders Chest Xray 1 View (02/23/25 17:51) Ct Ab Pel Wo Con-No Oral Or Iv (02/23/25 17:51) Vital Signs Date Time Temp Pulse Resp B/P (MAP) Pulse Ox O2 Delivery O2 Flow Rate FiO2 02/23/25 19:16 83 17 123/77 02/23/25 18:46 104 18 120/77 02/23/25 18:24 104 18 95 Room Air* 0 21 02/23/25 18:24 99.4 104 18 120/77 (91) 95 99.4 02/23/25 17:18 97.8 104 16 126/77 (93) 98 97.8 Laboratory Tests Test 02/23/25 17:28 White Blood Count 10.0 10^3/uL (4.4-10.8) Medications Medications Dose Ordered Sig/Nancy Route Start Time Stop Time Status Last Admin Dose Admin Ceftriaxone Sodium 50 ml @ 100 mls/hr ONCE ONCE IV 02/23/25 20:30 02/23/25 20:59 DC 02/23/25 20:47 Ketorolac Tromethamine 30 mg ONCE ONCE IV 02/23/25 21:30 02/23/25 21:31 DC 02/23/25 21:26 Morphine Sulfate 4 mg ONCE ONCE IV 02/23/25 18:00 02/23/25 18:01 DC 02/23/25 18:46 Ondansetron HCl 4 mg ONCE ONCE IV 02/23/25 18:00 02/23/25 18:01 DC 02/23/25 18:47 Pantoprazole Sodium 40 mg ONCE ONCE IV 02/23/25 18:00 02/23/25 18:01 DC 02/23/25 18:45 Sodium Chloride 2,000 ml @ 1,000 mls/hr Q2H ONCE IV 02/23/25 18:00 02/23/25 19:59 DC 02/23/25 19:00 Departure 1 Departure Time of Disposition: 20:27 Impression: Primary Impression: Biliary colic Additional Impression: UTI (urinary tract infection) Qualified Codes: N39.0 - Urinary tract infection, site not specified Disposition: HOME / SELF CARE / HOMELESS Condition: Stable Additional Instructions: Your blood tests, including screening test for heart attack and heart failure, were unremarkable. Your urine test showed you have a urinary tract infection. Your chest x-ray was normal. Your CT scan showed you have gallbladder stones, which along with the urinary tract infection could be causing your pain. I have prescribed pain medication and antibiotics. Follow-up with your primary doctor in 1-2 days. Return to ER for persistent or worsening symptoms. [place] [address] Ph: [phone] DIAGNOSTIC IMAGING Diagnostic Imaging Report : [id number] Signed PATIENT: CHONG AWAD ACCT: [id number] UNIT: [id number] : 1995 LOC: ER ROOM / BED: / AGE / SEX: 29 / F ADM STATUS: REG ER SERVICE [id number] ORDERING PHYSICIAN: MARCEL TOLBERT MD PROCEDURE(s): ABPL - CT AB PEL WO CON-NO ORAL OR IV REASON: upper abd pain radiating to the R shoulder and neck ORDER NUMBER(s): [id number], ACCESSION NUMBER(s): [id number] COMPUTERIZED TOMOGRAPHY ABDOMEN AND PELVIS WITHOUT CONTRAST REASON FOR EXAM: upper abd pain radiating to the R shoulder and neck COMPARISON: None TECHNIQUE: Spiral scans were acquired from the diaphragm to the symphysis pubis without intravenous contrast administration. 2-D coronal and sagittal reformatted images were provided. Radiation optimization: All CT scans at this facility use at least one of these dose optimization techniques: Automated exposure control mA and/or kV adjustment per patient size (includes targeted exams where dose is matched to clinical indication) or iterative reconstruction. RADIATION DOSE: CTDI: 22 mGy DLP: 1201 mGy-cm FINDINGS: The visualized lung bases are clear. There is no pleural effusion. There is no pericardial effusion. The spleen is not enlarged. The liver is normal in size and contour. Evaluation of the abdominal organs is suboptimal in the absence of intravenous contrast. Unenhanced appearance of the pancreas is within normal limits. There are several small calcified gallstones within the gallbladder which is not distended. There is no pericholecystic edema identified. The adrenal glands are normal. The kidneys are similar in size. There is no hydronephrosis of either kidney. No renal, ureteral, or bladder calculus is identified. The urinary bladder is decompressed and is not well evaluated. The uterus is within normal limits. The ovaries appear heterogeneous and borderline enlarged. Both ovaries contain scattered calcifications. There is trace free fluid in the dependent pelvis, likely physiologic. There is no significant colonic stool burden. The appendix is normal. There is no pathologic distention of the small bowel to suggest obstruction. No pathologic lymphadenopathy is identified by size criteria. There is no abdominal aortic aneurysm. No acute osseous abnormality is identified. IMPRESSION: Cholelithiasis without secondary signs of acute cholecystitis. Correlate clinically. Consider right upper quadrant ultrasound if clinically indicated. Both ovaries appear heterogeneous and borderline enlarged and contains scattered calcifications. Correlate clinically. Consider pelvic ultrasound if clinically indicated. Normal appendix e-Prescriptions Cephalexin Monohydrate (Cephalexin) 500 Mg Cap 1 CAP PO QID for 10 Days, #40 CAP Prov: MARCEL TOLBERT MD 02/23/25 Ondansetron Odt 4MG Tab (ZOFRAN PO) 4 Mg Tb 4 MG PO TID PRN, #30 TAB Prn nausea/vomiting ODT TAB-DISSOLVE IN MOUTH, THEN SWALLOW Prov: MARCEL TOLBERT MD 02/23/25 Omeprazole Magnesium (Omeprazole) 20 Mg Tab 20 MG PO DAILY@BREAKFAST, #30 TAB Prov: MACREL TOLBERT MD 02/23/25 Hydrocodone-Acetaminophen (Hydrocodone Bitartrate/AC 5-325 mg) 1 Tab Tab 1 TAB PO Q6HP PRN, #20 TAB Prn pain Prov: MARCEL TOLBERT MD 02/23/25 Dicyclomine Hcl (BENTYL CAPSULE) 10 Mg Cp 2 CAP PO TID PRN, #30 CAP 11 Refills Prn abdominal pain Prov: MARCEL TOLBERT MD 02/23/25 Discharged With: Relative Critical Care Note Critical Care Time?: No Stability Stability form required: No Heart Score Heart Score: Heart Score Response (Comments) Value History N/A 0 EKG N/A 0 Age N/A 0 Risk Factors N/A 0 Troponin N/A 0 Total 0 I personally scribed for MARCEL TOLBERT MD (MARIA L) on 02/23/25 at 18:48. Electronically submitted by Mary Jo Choi ([facility]). I personally scribed for MARCEL TOLBERT MD (MARIA L) on 02/23/25 at 19:47. Electronically submitted by Mary Jo Choi ([facility]). MARCEL TOLBERT MD Feb 23, 2025 18:48
[2025-02-23] MEDS: SODIUM CHLORIDE 0.9% 2,000 ML IV ONE (18:55)
[2025-02-23 19:16] VITALS: BP 123/77; PULSE 83; RESP 17
[2025-02-23] MEDS ORDERED: ZOFR4T PO (20:33)
[2025-02-23] MEDS ORDERED: CEPH500C PO (20:33)
[2025-02-23] MEDS ORDERED: DICY10CA PO (20:33)
[2025-02-23] MEDS ORDERED: HYDR-4902 PO (20:33)
[2025-02-23] MEDS ORDERED: OMEP-434 PO (20:33)
[2025-02-23] MEDS: cefTRIAXone 1GM/50ML D5W 50 ML IV ONE (20:47)
[2025-02-23] MEDS: KETOROLAC TROMETH 30 MG/ML 1ML VIAL IV ONE (21:26)
== END 2025-02-23 22:36 | disposition home or self-care (01) ==
LOC: ER 16:27
DX: K80.70 Calculus of gallbladder and bile duct without cholecystitis without obstruction (principal); N39.0 Urinary tract infection, site not specified; Z98.890 Other specified postprocedural states; M25.511 Pain in right shoulder; M54.2 Cervicalgia; R06.02 Shortness of breath
CPT/HCPCS: 36415; 71045; 74176; 80053; 81001; 81025; 83690; 83880; 84484; 85025; 96361; 96365; 96366; 96375; 99285; J0696; J1885; J2270; J2405; J2470; J7030